=== PATIENT | male | born 1955 | race Caucasian/White ===

== ENCOUNTER → 2016-06-02 | Day surgery (SDC) | payer OTHER ==
[~2016-06-02] MED LIST: ALLERGY10 M1 PO; ASPIR-LOW81 MG PO; FISH OIL 1,0001 EAC4 PO; GLUCOPHAGE1000 MG PO; LOFIBRA54 MG PO; LOSARTAN-HCTZ1 EAC2 PO; METOPROLOL TART25 MG PO; NORCO 7.5-3251 EACH PO; PLAVIX 75 MG TA75 MG PO; PROTONIX 20 MG20 MG PO; TRADJENTA5 MG PO; ULTRAM50 MG PO
== END | disposition home or self-care (01) ==
LOC: OR 09:41
PROVIDERS: Surgery
PROC: 05HM33Z Insertion of Infusion Device into Right Internal Jugular Vein, Percutaneous Approach (ICD-10-PCS; 2016-06-02)
PROC: B513ZZA Fluoroscopy of Right Jugular Veins, Guidance (ICD-10-PCS; 2016-06-02)
PROC: 0JH60XZ Insertion of Tunneled Vascular Access Device into Chest Subcutaneous Tissue and Fascia, Open Approach (ICD-10-PCS; principal; 2016-06-02 13:15)
DX: C82.90 Follicular lymphoma, unspecified, unspecified site (principal); M19.90 Unspecified osteoarthritis, unspecified site; I25.10 Atherosclerotic heart disease of native coronary artery without angina pectoris; H26.9 Unspecified cataract; Z95.5 Presence of coronary angioplasty implant and graft; E11.9 Type 2 diabetes mellitus without complications; I10 Essential (primary) hypertension; E78.5 Hyperlipidemia, unspecified; E66.01 Morbid (severe) obesity due to excess calories; G35 Multiple sclerosis; G47.30 Sleep apnea, unspecified; Z88.0 Allergy status to penicillin; Z88.8 Allergy status to other drugs, medicaments and biological substances; Z79.82 Long term (current) use of aspirin; Z79.899 Other long term (current) drug therapy; I25.2 Old myocardial infarction; Z87.19 Personal history of other diseases of the digestive system; Z90.49 Acquired absence of other specified parts of digestive tract; Z90.89 Acquired absence of other organs; Z80.1 Family history of malignant neoplasm of trachea, bronchus and lung
CPT/HCPCS: 71010; 77001; 82962; C1769; C1788; J0690; J1644; J1956; J2250; J3010; J3370; J7030; J7120

== ENCOUNTER → 2016-08-18 | Outpatient (CLI) | payer OTHER | LOC: CT 12:51 | DX: Z12.5 Encounter for screening for malignant neoplasm of prostate (principal); R59.9 Enlarged lymph nodes, unspecified; C82.58 Diffuse follicle center lymphoma, lymph nodes of multiple sites | CPT/HCPCS: 70491; 71260; J7050; Q9962 ==

== ENCOUNTER → 2020-07-30 | Outpatient (CLI) | payer OTHER ==
[~2020-07-30] MED LIST changes: +ACTOS15 MG PO; +ANTIVERT 25MG T25 MG PO; +BUTALBIT-ACETA1 EACH PO; +DIFLUCAN 100 M100 MG PO; +ECOTRIN81 MG PO; +FISH OIL 1,0001 EACH PO; +IBUPROFEN600 MG PO; +JANUVIA100 MG PO; -LOSARTAN-HCTZ1 EAC2 PO; +LOSARTAN-HCTZ1 EACH PO; +NITROSTAT 0.40.4 MG SL; +ONDANSETRON ODT4 MG SL; -PROTONIX 20 MG20 MG PO; +PROTONIX 40 MG40 M1 PO; +VIBRAMYCIN100 MG PO; +VITAMIN D350 MC4 PO; +XARELTO10 MG PO
== END ==
LOC: KOH-I 14:00
DX: R22.42 Localized swelling, mass and lump, left lower limb (principal); M71.22 Synovial cyst of popliteal space [Baker], left knee
CPT/HCPCS: 93971

== ENCOUNTER → 2020-09-16 | Outpatient (CLI) | payer OTHER | LOC: HEART 5 07:56 | DX: I35.0 Nonrheumatic aortic (valve) stenosis (principal); R06.02 Shortness of breath; I25.10 Atherosclerotic heart disease of native coronary artery without angina pectoris; Z95.5 Presence of coronary angioplasty implant and graft | CPT/HCPCS: 93306 ==

== ENCOUNTER → 2020-09-21 | Outpatient (CLI) | payer OTHER | LOC: KOH-I 10:40 | DX: R49.0 Dysphonia (principal); R05 Cough; J38.7 Other diseases of larynx | CPT/HCPCS: 70490 ==

== ENCOUNTER 2020-10-12 18:46 | Emergency (ER) | payer OTHER ==
[~2020-10-12 18:46] MED LIST changes: -ONDANSETRON ODT4 MG SL
[2020-10-12 19:24] LABS: HEMOGLOBIN 16.1 gm/dl (14.0-17.5); RED BLOOD COUNT 5.29 M/UL (4.20-5.50); WHITE BLOOD COUNT 7.3 K/UL (4.5-11.0)
[2020-10-12] MEDS ORDERED: ONDANSETRON ODT4 MG SL (21:28)
== END 2020-10-12 21:35 | disposition home or self-care (01) ==
LOC: ER1 18:46
PROVIDERS: Physician Assistant
DX: I12.9 Hypertensive chronic kidney disease with stage 1 through stage 4 chronic kidney disease, or unspecified chronic kidney disease (principal); N18.9 Chronic kidney disease, unspecified; E11.22 Type 2 diabetes mellitus with diabetic chronic kidney disease; I25.2 Old myocardial infarction; Z86.718 Personal history of other venous thrombosis and embolism; Z86.711 Personal history of pulmonary embolism; Z88.0 Allergy status to penicillin; Z88.8 Allergy status to other drugs, medicaments and biological substances; Z91.041 Radiographic dye allergy status; Z20.822 Contact with and (suspected) exposure to COVID-19
CPT/HCPCS: 80053; 83690; 85025; 99284; U0002

== ENCOUNTER → 2020-11-04 | Outpatient (CLI) | payer OTHER ==
[~2020-11-04] MED LIST changes: +ONDANSETRON ODT4 MG SL
== END ==
LOC: RAD 09:15
DX: R13.10 Dysphagia, unspecified (principal); K44.9 Diaphragmatic hernia without obstruction or gangrene; K22.2 Esophageal obstruction
CPT/HCPCS: 74220; 74230; 92611-GN

== ENCOUNTER → 2020-12-09 | Outpatient (CLI) | payer OTHER | LOC: EXRD 10:11 | DX: N18.31 Chronic kidney disease, stage 3a (principal); N28.1 Cyst of kidney, acquired | CPT/HCPCS: 76775 ==

== ENCOUNTER 2020-12-16 11:40 | Emergency (ER) | payer OTHER ==
[~2020-12-16] VITALS: Ht 170.2 cm; Wt 119.3 kg
== END 2020-12-16 15:00 | disposition home or self-care (01) ==
LOC: ER1 11:40
DX: Z23 Encounter for immunization (principal); U07.1 COVID-19; I25.2 Old myocardial infarction; E11.9 Type 2 diabetes mellitus without complications; I10 Essential (primary) hypertension; Z86.73 Personal history of transient ischemic attack (TIA), and cerebral infarction without residual deficits; Z86.711 Personal history of pulmonary embolism; Z90.49 Acquired absence of other specified parts of digestive tract; Z90.89 Acquired absence of other organs; Z88.0 Allergy status to penicillin; Z91.041 Radiographic dye allergy status; Z88.8 Allergy status to other drugs, medicaments and biological substances; Z79.899 Other long term (current) drug therapy
CPT/HCPCS: 99284; M0243